=== PATIENT | female | born 1970 | race Caucasian/White ===

== ENCOUNTER → 2022-11-19 13:12 | Outpatient (CLI) | payer OTHER, MEDICAID, SELFPAY ==
--- NOTE | 2022-11-19 | DI.MRI.S_ITS ---
PROCEDURE: MR LUMBAR SPINE WO CON INDICATIONS: low back pain with radiculopathy TECHNIQUE: Noncontrast sagittal T1 spin echo and T2 fast echo, sagittal STIR, and T2 fast spin echo through the lumbar spine. In cases with scoliosis, additional coronal T2 fast spin echo may be performed. COMPARISON: [facility], , L-SPINE WITHOUT CONTRAST, 08/14/2010, 11:59. FINDINGS: Image quality: Excellent. Alignment and Curvature: There is normal bony alignment. Bone Marrow: Modic type 1 degenerative endplate changes noted at L4-5 Spinal Cord: Conus medullaris terminates at the L1 level. Visualized cord demonstrates normal signal and size. Paraspinous Soft Tissues: No paravertebral masses. T12-L1: Normal appearance. L1-L2: Normal appearance. L2-L3: Disc space narrowing with circumferential disc bulge results in mild central stenosis. No foraminal stenosis L3-L4: Disc space narrowing with circumferential disc bulge results in mild central stenosis. No foraminal stenosis L4-L5: Disc space narrowing with asymmetric left disc bulge results in mild central stenosis. Mild left and no right foraminal stenosis L5-S1: Normal appearance. IMPRESSION: Degenerative disc disease and arthropathy without significant central or foraminal stenosis Approved by: José Miguel Hart M.D. on 11/19/2022 at 18:27
== END ==
PROVIDERS: Family Provider Family Medicine Geriatric Medicine; PCP Family Medicine; Referring Provider Physical Medicine & Rehabilitation; Visit Provider Physical Medicine & Rehabilitation
DX: M51.16 Intervertebral disc disorders with radiculopathy, lumbar region (principal)
CPT/HCPCS: 72148